=== PATIENT | male | born 2000 | race Caucasian/White ===

== ENCOUNTER 2022-01-01 02:30 | Emergency (ER) | payer OTHER ==
[2022-01-01 03:27] VITALS: BP 115/70; PULSE 100; TEMP 99.4; BMI 25.6
== END 2022-01-01 03:00 | disposition left against medical advice (07) ==
LOC: JER 02:30
DX: T78.05XA Anaphylactic reaction due to tree nuts and seeds, initial encounter (principal)
CPT/HCPCS: 99281-25